=== PATIENT | male | born 1985 | race Caucasian/White ===

== ENCOUNTER 2017-12-29 07:15 | Emergency (ER) | payer OTHER ==
[~2017-12-29] VITALS: Ht 172.7 cm; Wt 65.8 kg
[2017-12-29 07:22] VITALS: BP 123/81
--- NOTE | 2017-12-29 07:27 | NUR ---
AMBULATES TO BED 4 WITH STEADY NORMAL GAIT
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
--- NOTE | 2017-12-29 07:46 | NUR ---
PT TO X RAY
--- NOTE | 2017-12-29 10:49 | NUR ---
Patient discharged with v/s stable. Written and verbal after care instructions given and explained. Patient alert, oriented and verbalized understanding of instructions. Ambulatory with steady gait. All questions addressed prior to discharge. ID band removed. Patient advised to follow up with PMD. Rx of voltaren given. Patient educated on indication of medication including possible reaction and side effects. Opportunity to ask questions provided and answered. Copy of xray given per pt request.
== END 2017-12-29 10:49 | disposition home or self-care (01) ==
LOC: MED 07:15
DX: S73.101A Unspecified sprain of right hip, initial encounter (principal); S83.91XA Sprain of unspecified site of right knee, initial encounter; M54.5 Low back pain; J45.909 Unspecified asthma, uncomplicated; F17.200 Nicotine dependence, unspecified, uncomplicated; X58.XXXA Exposure to other specified factors, initial encounter; Y93.89 Activity, other specified; Y92.89 Other specified places as the place of occurrence of the external cause; Y99.8 Other external cause status
CPT/HCPCS: 72100; 73502; 73560; 99284

== ENCOUNTER 2017-12-31 16:52 | Emergency (ER) | payer OTHER ==
[~2017-12-31] VITALS: Ht 172.7 cm; Wt 65.8 kg
[2017-12-31 17:01] VITALS: BP 128/83
--- NOTE | 2017-12-31 17:05 | NUR ---
PT AMBULATES TO BED 5
--- NOTE | 2017-12-31 17:06 | NUR ---
PT TAKEN TO XRAY IN WHEELCHAIR
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
[2017-12-31] MEDS ORDERED: IBUPROFEN 600 MG TAB PO ONE (17:35)
--- NOTE | 2017-12-31 17:40 | NUR ---
Velcro wrist splint applied to left wrist and shoulder sling, PMSC's assessed and within normal limits. Patient tolerated splint well.
[2017-12-31 18:01] VITALS: BP 126/85
== END 2017-12-31 18:07 | disposition home or self-care (01) ==
LOC: MED 16:52
DX: S63.502A Unspecified sprain of left wrist, initial encounter (principal); V19.9XXA Pedal cyclist (driver) (passenger) injured in unspecified traffic accident, initial encounter; Y93.I9 Activity, other involving external motion; Y92.488 Other paved roadways as the place of occurrence of the external cause; Y99.8 Other external cause status
CPT/HCPCS: 29125; 73110; 99284; Q0092

== ENCOUNTER 2018-07-17 21:43 | Emergency (ER) | payer OTHER ==
[~2018-07-17] VITALS: Ht 172.7 cm; Wt 70.3 kg
[2018-07-17 21:45] VITALS: BP 119/65
--- NOTE | 2018-07-17 21:45 | NUR ---
PT SHARIF ALS. TAKEN TO BED 9
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
--- NOTE | 2018-07-17 22:10 | NUR ---
Dr. Baltazar evaluating patient at bedside.
--- NOTE | 2018-07-17 23:12 | NUR ---
X-Ray at bedside.
[2018-07-17 23:48] LABS: BARBITURATE, URINE NEG. ng/ml (NEG <=200); BENZODIAZEPINE, URINE NEG. ng/mL (NEG <=200); CANNABINOID, URINE POS. ng/mL (NEG <=50); COCAINE, URINE NEG. ng/mL (NEG <=300); OPIATE, URINE NEG. ng/mL (NEG <=2000); PHENCYCLIDINE SCREEN,URINE NEG. ng/mL (NEG <=25)
[2018-07-18 00:05] VITALS: BP 111/60
--- NOTE | 2018-07-18 00:05 | NUR ---
Patient discharged with v/s stable. Written and verbal after care instructions given and explained. Patient verbalized understanding. Ambulatory with steady gait. All questions addressed prior to discharge. Advised to follow up with PMD. Refuses offer of penitentiary placement. Given list of available shelters in surrounding areas.
== END 2018-07-18 00:05 | disposition home or self-care (01) ==
LOC: MED 21:43
DX: R06.02 Shortness of breath (principal); F15.10 Other stimulant abuse, uncomplicated; F41.9 Anxiety disorder, unspecified; J45.909 Unspecified asthma, uncomplicated
CPT/HCPCS: 71045; 80305; 99284; Q0092

== ENCOUNTER 2018-09-17 16:31 | Emergency (ER) | payer OTHER ==
[~2018-09-17] VITALS: Ht 170.2 cm; Wt 68.0 kg
--- NOTE | 2018-09-17 16:31 | NUR ---
Patient BIBA BLS, transferred to bed 9. RN evaluating patient at bedside.
[2018-09-17 16:35] VITALS: BP 109/58
--- NOTE | 2018-09-17 17:16 | NUR ---
evs tech at bedside.
--- NOTE | 2018-09-17 17:28 | NUR ---
PATIENT PRESENTS TO ED WITH ADMITS TO ETOH ABUSE TODAY--NO TREMORS NOTED--FULL CLEAR SPEECH DENIES N/V---ADMITS TO GENERALIZED PAIN DENIES RECENT INJURY/TRAUMA---PT ASKING FOR FOOD---WILL PROVIDE . SKIN IS PINK/WARM/DRY; AAOX4 WITH EVEN AND STEADY GAIT; LUNGS CLEAR BL; HR EVEN AND REGULAR; PT DENIES ANY FEVER, CP, SOB, OR COUGH AT THIS TIME; PATIENT STATES PAIN OF 5/10 AT THIS TIME; VSS; PATIENT POSITIONED FOR COMFORT; HOB ELEVATED; BEDRAILS UP X2; BED DOWN. ER MD MADE AWARE OF PT STATUS.
--- NOTE | 2018-09-17 19:36 | NUR ---
Patient discharged with v/s stable. Written and verbal after care instructions given and explained. Patient verbalized understanding. Ambulatory with steady gait. All questions addressed prior to discharge. Advised to follow up with PMD. PT WAS GIVEN A RESOUCE PACKET FOR SUBSTANCE AND ALCOHOL ABUSE.
[2018-09-17 19:37] VITALS: BP 109/58
== END 2018-09-17 19:36 | disposition home or self-care (01) ==
LOC: MED 16:31
DX: F10.129 Alcohol abuse with intoxication, unspecified (principal); M25.521 Pain in right elbow; J45.909 Unspecified asthma, uncomplicated; Y90.9 Presence of alcohol in blood, level not specified
CPT/HCPCS: 73080; 99283; Q0092

== ENCOUNTER 2020-06-25 15:56 | Emergency (ER) | payer OTHER ==
[~2020-06-25] VITALS: Ht 167.6 cm; Wt 79.4 kg
[2020-06-25 16:13] VITALS: BP 139/97
--- NOTE | 2020-06-25 16:37 | NUR ---
NO NEED NURSING CARE.
[2020-06-25 16:38] VITALS: BP 139/97
== END 2020-06-25 16:38 | disposition home or self-care (01) ==
LOC: MED 15:56
DX: J45.909 Unspecified asthma, uncomplicated (principal); Z76.0 Encounter for issue of repeat prescription
CPT/HCPCS: 99281; 99283

== ENCOUNTER 2020-11-29 12:12 | Emergency (ER) | payer MEDICAID, OTHER ==
[~2020-11-29] VITALS: Ht 172.7 cm; Wt 68.0 kg
[2020-11-29 12:15] VITALS: BP 112/57
--- NOTE | 2020-11-29 12:21 | NUR ---
PATIENT AMBULATED TO BED 2
--- NOTE | 2020-11-29 12:25 | NUR ---
35 Y/O M BIB SELF FROM HOME, C/O LOWER BACK PAIN FOR 1 MO, PT STATES HE WAS PULLING STRING ON [employer]IPPING ROOM AND HAS BEEN HAVING LOW BACK PAIN SINCE. DENIES DYSURIA, N/V/D, CONSTIPATION. SKIN IS PINK/WARM/DRY; AAOX4 WITH EVEN AND STEADY GAIT; LUNGS CLEAR BL; HR EVEN AND REGULAR; PT DENIES ANY FEVER, CP, SOB, OR COUGH AT THIS TIME; PATIENT STATES PAIN OF 10/10 AT THIS TIME; VSS; PATIENT POSITIONED FOR COMFORT; HOB ELEVATED; BEDRAILS UP X2; BED DOWN. ER MD MADE AWARE OF PT STATUS. PMH: ASTHMA NKA MED: DENIES "I DONT BOTHER WITH OTC MEDICATION BECAUSE NONE OF IT WORKS"
[2020-11-29] MEDS ORDERED: KETOROLAC 30 MG/ML VIAL IM ONE (13:35)
[2020-11-29] MEDS ORDERED: METH-1681 PO (13:45)
[2020-11-29] MEDS ORDERED: LIDO1ADH47 TP (13:45)
[2020-11-29] MEDS ORDERED: NAPR-54 PO (13:45)
[2020-11-29] MEDS ORDERED: PRED20TA5 PO (13:45)
[2020-11-29 14:09] VITALS: BP 112/57
--- NOTE | 2020-11-29 14:09 | NUR ---
Patient discharged with v/s stable. Written and verbal after care instructions given and explained. Patient alert, oriented and verbalized understanding of instructions. Ambulatory with steady gait. All questions addressed prior to discharge. ID band removed. Patient advised to follow up with PMD. Rx of NAPROXEN, PRENISONE, LIDOCAINE, METHOCARBAMOL given. Patient educated on indication of medication including possible reaction and side effects. Opportunity to ask questions provided and answered.
== END 2020-11-29 14:09 | disposition home or self-care (01) ==
LOC: MED 12:12
DX: M54.42 Lumbago with sciatica, left side (principal); J45.909 Unspecified asthma, uncomplicated; Z79.899 Other long term (current) drug therapy; Z98.890 Other specified postprocedural states
CPT/HCPCS: 72110; 96372; 99283; J1885